=== PATIENT | male | born 1975 | race Caucasian/White ===

== ENCOUNTER 2022-08-19 09:04 | Outpatient (CLI) | payer OTHER, SELFPAY ==
[2022-08-19 15:29] LABS: Chloride* 102 mmol/L (96-114)
[2022-08-19 15:30] LABS: Albumin* 4.4 g/dL (3.3-5.0); Potassium* 4.2 mmol/L (3.6-5.1); Sodium* 138 mmol/L (135-149)
[2022-08-19 15:32] LABS: Carbon Dioxide* 28 mmol/L (20-32); Cholesterol* 210 mg/dL (90-199)
[2022-08-19 15:33] LABS: Alanine Aminotransferase* 35 U/L (4-50); Alkaline Phosphatase* 104 U/L (40-150); Aspartate Amino Transferase* 25 U/L (12-35); Blood Urea Nitrogen* 16 mg/dL (5-24); Calcium* 9.5 mg/dL (8.4-10.6); Creatinine* 0.8 mg/dL (0.5-1.5); Estimated Glomerular Filt Rate 112 ml/min; Glucose* 103 mg/dL (60-115); Total Protein* 7.1 g/dL (6.0-8.3)
[2022-08-19 15:34] LABS: HDL Cholesterol* 27 mg/dL (>=40); LDL Cholesterol Calculated 102 mg/dL (<100)
[2022-08-19 15:45] LABS: Triglycerides* 404 mg/dL (40-149)
== END 2022-08-19 09:05 | disposition home or self-care (01) ==
PROVIDERS: PCP Family Medicine; Visit Provider Family Medicine
DX: Z00.00 Encounter for general adult medical examination without abnormal findings (principal); I10 Essential (primary) hypertension; Z13.6 Encounter for screening for cardiovascular disorders
CPT/HCPCS: 80053; 80061

== ENCOUNTER 2023-11-24 08:15 | Outpatient (CLI) | payer OTHER, SELFPAY | END 2023-11-24 08:16 | disposition home or self-care (01) | LOC: NFLDREF 11-25 10:57 | PROVIDERS: PCP Family Medicine; Referring Provider Family Medicine; Visit Provider Family Medicine | DX: I10 Essential (primary) hypertension (principal); Z13.220 Encounter for screening for lipoid disorders | CPT/HCPCS: 80048; 80061; 85027 ==

== ENCOUNTER 2025-07-10 10:30 | Outpatient (CLI) | payer OTHER, SELFPAY | END 2025-07-10 10:31 | disposition home or self-care (01) | LOC: NFLDREF 07-13 16:58 | PROVIDERS: PCP Family Medicine; Referring Provider Family Medicine; Visit Provider Family Medicine | DX: I10 Essential (primary) hypertension (principal); Z13.6 Encounter for screening for cardiovascular disorders; Z12.5 Encounter for screening for malignant neoplasm of prostate | CPT/HCPCS: 80053; 80061; G0103 ==